=== PATIENT | female | born 1945 | race Caucasian/White ===

== ENCOUNTER 2018-06-08 07:54 | Day surgery (SDC) ==
[2018-06-08 08:32] VITALS: TEMP 8.5
[2018-06-08] MEDS ORDERED: LIDOCAINE 1% 20 ML MDV ID STA (08:41)
[2018-06-08] MEDS ORDERED: VERSED ONE (10:00)
[2018-06-08] MEDS ORDERED: DIPRIVAN 20 ML VIAL IVP ONE (10:00)
[2018-06-09 09:09] VITALS: BP 134/68
--- NOTE | 2018-06-09 10:58 | OP ---
INDICATIONS FOR PROCEDURE: 73 year old female presents for screening colonoscopy exam. She tells me that she was not able to drink all of her prep. She is not having clear liquid stools. I talked to her about the option of re prepping and reattempting colonoscopy exam tomorrow and she declined that option. She wishes to pursue with the colonoscopy and see what we can see. She understands that I may not be able to do a thorough examination without the ideal prep. MEDICATIONS: SEE ANESTHESIA NOTES. PROCEDURE: COLONOSCOPY. REPORT: The risks, benefits, alternatives and limitations were discussed in detail with the patient. Informed consent was obtained. After adequate sedation was achieved, a digital rectal exam revealed good tone, no masses. The colonoscope was introduced into the rectum and advanced under direct visual guidance. The rectum was okay on the prep but once I entered the sigmoid colon the prep turned fair. There was some adherent liquid and semisolid stool present. I advanced the scope under direct visual guidance and I was able to reach the cecum. While advancing I washed and suctioned off the colon britt. The cecum was identified by the appendiceal orifice and IC valve. The then slowly withdrew the scope in circumferential manner and examined the mucosa quite carefully. I looked on the proximal and distal sides of the folds and flexures as best as possible. The prep was fair. I was able to identify large polyps or mass lesions. Flat polyps could have been obscured as well as very small polyps. I identified diverticulosis in the sigmoid colon. The rectum had a good prep. No other abnormalities were noted there including on retroflex view of the anal canal. The patient tolerated the procedure well with stable vital signs and pulse oximetry throughout. IMPRESSION: 1. Scatter sigmoid diverticulosis 2. Fair prep limiting the extent of this exam to rule out polypoid lesions or mass lesions. RECOMMENDATIONS: 1. I will talk to her again about repeating colonoscopy exam for screening. I suggest that she undergo repeat screening examination within a years time or a year from now at the latest if she is interested. 2. High fiber diet 3. We will see her back in the office as needed. CC: Dr. Sarahy HODEG
== END 2018-06-08 11:30 | disposition home or self-care (01) ==
LOC: SURG 07:54
PROVIDERS: ATTEND Internal Medicine Gastroenterology
DX: Z12.11 Encounter for screening for malignant neoplasm of colon (principal); K57.90 Diverticulosis of intestine, part unspecified, without perforation or abscess without bleeding